=== PATIENT | female | born 1950 | race Caucasian/White ===

== ENCOUNTER → 2017-06-22 13:05 | Outpatient (CLI) | payer MEDICARE, OTHER, SELFPAY ==
[2017-06-19 13:25] VITALS: BP 106/67; BMI 26.4
--- NOTE | 2017-06-22 13:11 | HPBI_ITS ---
MAMMOGRAPHY - UNILATERAL DIAGNOSTIC: LEFT BREAST REASON FOR EXAM: Female, 66 years old. Abnormal screening mammogram. PERTINENT HISTORY: Non-contributory. TECHNIQUE: Compression spot views of the left breast as well as 3-D views of the left breast were obtained. CAD: Full Field Digital Mammography with Computer Added Detection was performed. COMPARISON: Comparison is made with prior outside examination dated June 12, 2017. FINDINGS: Breast Composition: There are scattered areas of fibroglandular density. There are no dominant masses or suspicious calcifications. No other significant abnormalities are identified. BI/DIAG MAMM W/CAD, UNILAT IMPRESSION: No suspicious abnormality is seen. Correlation with ultrasound is recommended. ASSESSMENT CATEGORY: BIRADS Category 0: Incomplete. Need additional imaging evaluation. A letter regarding these results will be sent to the patient by the facility within 30 days. Approximately 10% of breast cancers are not detected by mammography. A normal mammogram should not delay biopsy of a clinically suspicious abnormality. Electronically Signed: Zafar Momin MD at 8:24 EST Tel [phone], Service support ,
--- NOTE | 2017-06-22 14:07 | US_ITS ---
STUDY: ULTRASOUND BREAST - LEFT REASON FOR EXAM: Female, 66 years old. Abnormal screening mammogram demonstrating a focal area of architectural distortion. TECHNIQUE: Axial and longitudinal images of the LEFT breast were performed with a high resolution ultrasound transducer. COMPARISON: Comparison is made with prior mammogram done earlier in the day as well as prior outside mammogram dated June 12, 2017. FINDINGS: LEFT Breast: The upper inner quadrant was examined by ultrasound. There is homogeneous fibroglandular tissue. No sonographic abnormality is seen. US/Breast Limited Unilateral IMPRESSION: No cystic sonographic abnormality is seen. ASSESSMENT CATEGORY: BIRADS Category 2: Benign. A letter regarding these results will be sent to the patient by the facility within 30 days. Electronically Signed: Zafar Momin MD at 15:04 EST Tel [phone], Service support ,
== END ==
PROVIDERS: Family Provider Preventive Medicine Occupational Medicine; PCP Preventive Medicine Occupational Medicine; Visit Provider Surgery
DX: R92.8 Other abnormal and inconclusive findings on diagnostic imaging of breast (principal)
CPT/HCPCS: 76642; 77061; 77065; G0279

== ENCOUNTER → 2017-06-29 07:54 | Outpatient (CLI) | payer MEDICARE, BC, OTHER, SELFPAY ==
[2017-06-19 13:25] VITALS: BP 106/67; BMI 26.4
--- NOTE | 2017-06-29 | BRBX_PTH ---
PATIENT: MONDAY RAND RALPH LOC: [facility] U#:[id number] AGE/SX: 74/F ROOM: RE06/29/[address]: Dr. Irish Fox MD : 1950 BED: DIS: SPEC #: [id number] RECD: 06/29/17 10:09 STATUS: COREY ALLEGRA #: [id number] PETERSON: 06/29/17 00:[address]: Irish Fox DEPT: SURGICAL PATHOLOGY RECD BY: Hardy Adams ENTERED: 06/29/17 10:18 SP TYPE: BREAST BX OTHR DR: Dr. Kevin Doherty DO Tissues: Left breast, NOS Procedures: Surgery Specimen Level IV HEADER OPERATION: Ultrasound-guided breast biopsy, left PRE-OP DIAGNOSIS: Left breast lesion 11 o?clock TISSUE SUBMITTED: Left breast lesion 11 o?clock ISCHEMIC TIME: 60 seconds MICROSCOPIC DIAGNOSIS Left breast, ultrasound-guided needle core biopsy: Fibrocystic change and focal elastosis. No evidence of malignancy. AM:estrella 06/30/17 MICROSCOPIC DESCRIPTION Slides are reviewed. GROSS DESCRIPTION Received in fixative is one container labeled with the patient's name and designated left breast. The specimen consists of multiple irregular fragments of pink, yellow and sutherland tissue that in aggregate measure 2 x 1 x 0.3 cm. The specimen is totally submitted in one cassette. / RY:estrella 06/29/17 TC:5 CPT: 09503
--- NOTE | 2017-06-29 07:56 | US_ITS ---
STUDY: ULTRASOUND BREAST - LEFT REASON FOR EXAM: Female, 66 years old. Breast Biopsy. TECHNIQUE: Axial and longitudinal images of the LEFT breast were performed with a high resolution ultrasound transducer. COMPARISON: Comparison is made with prior mammogram dated June 22, 2017. FINDINGS: LEFT Breast: There is an 8 mm x 9 mm x 8 mm ill-defined spiculated nodule at the 11:00 position breast at 3 cm from nipple. The surgeon performed 5 core biopsies. US/US Breast Biopsy 1st Lesion IMPRESSION: Successful ultrasound-guided core biopsy of the suspicious lesion at the 11:00 position in the breast at 3 cm from the nipple. ASSESSMENT CATEGORY: BIRADS Category 4: Suspicious - Biopsy Should Be Considered. A letter regarding these results will be sent to the patient by the facility within 30 days. Electronically Signed: Zafar Momin MD at 9:19 EST Tel [phone], Service support ,
--- NOTE | 2017-06-29 08:44 | HPBI_ITS ---
MAMMOGRAPHY - UNILATERAL DIAGNOSTIC: LEFT BREAST REASON FOR EXAM: Female, 66 years old. Assessment of clip placement following ultrasound-guided guided biopsy. PERTINENT HISTORY: TECHNIQUE: Digital unilateral breast amber (3D mammographic acquisition) in the CC and MLO projections. 2-D mediolateral oblique (MLO) and craniocaudad (CC) views of both breasts were obtained. CAD: Full Field Digital Mammography with Computer Added Detection was performed. COMPARISON: Comparison is made with prior outside examination dated June 12, 2017. FINDINGS: A tissue clip marker is seen in the central portion of the left breast corresponding to the focal area of architectural distortion. HPBI/DIAG MAMM W/CAD, UNILAT IMPRESSION: The tissue clip marker is seen within the focal area of architectural distortion. ASSESSMENT CATEGORY: BIRADS Category 2: Benign. A letter regarding these results will be sent to the patient by the facility within 30 days. Approximately 10% of breast cancers are not detected by mammography. A normal mammogram should not delay biopsy of a clinically suspicious abnormality. Electronically Signed: Zafar Momin MD at 10:19 EST Tel [phone], Service support ,
--- NOTE | 2017-06-29 08:56 | PCM.OP.BLANK ---
Operative Report Date of Procedure: 06/29/17 Procedure: ultrasound-guided core biopsy Indications: 66 year-old female with hypoechoic nodule with posterior shadowing at 11:00 in the left breast 2 centimeters from the nipple. Risk benefits were discussed the patient and she elected to proceed with ultrasound guided core biopsy with clip placement Description of procedure: Patient was brought into the ultrasound room in the left breast was marked. A timeout was completed verifying correct patient, procedure, site, specially, prior to beginning procedure. The left breast was prepped and draped in usual sterile fashion and using local anesthesia was obtained with 1% lidocaine with epi. The lesion was located with the ultrasound. Small incision was made with 11 blade to introduced the mammotome through the skin. Under ultrasound guidance multiple core samples were obtained using then 13-gauge mammotome and sent in formalin for pathology. The mammotome mammostar clip was then deployed into the biopsy cavity under ultrasound guidance and a picture was taken. Upon completion procedure hemostasis was obtained and a Steri-Strip and OpSite were placed. Patient was then taken to the mammography suite for clip verification. The clip was verified. The patient tolerated the procedure well and was discharged from the breast imaging department good condition. complications: none
== END ==
PROVIDERS: Family Provider Preventive Medicine Occupational Medicine; PCP Preventive Medicine Occupational Medicine; Visit Provider Surgery
DX: N64.89 Other specified disorders of breast (principal); N63.21 Unspecified lump in the left breast, upper outer quadrant
CPT/HCPCS: 19083; 77065; 88305

== ENCOUNTER 2020-07-16 16:36 | Outpatient (RCR) | payer MEDICARE, BC, OTHER, SELFPAY ==
[2017-06-19 13:25] VITALS: BMI 26.4
[2020-07-16] MEDS: COVID-19 VACC, MRNA(PFIZER)/PF 30 MCG/0.3 ML SYRINGE IM (15:33)
[2020-08-06] MEDS: COVID-19 VACC, MRNA(PFIZER)/PF 30 MCG/0.3 ML SYRINGE IM (14:34)
== END 2020-10-20 23:59 ==
LOC: IMMUN 16:36
PROVIDERS: PCP Preventive Medicine Occupational Medicine; Visit Provider Family Medicine
DX: Z23 Encounter for immunization (principal)
CPT/HCPCS: 0001A; 0002A; 91300

== ENCOUNTER 2020-12-13 20:28 | Emergency (ER) | payer MEDICARE, OTHER, BC, SELFPAY ==
[2017-06-19 13:25] VITALS: BMI 26.4
[2020-12-13 20:29] VITALS: BP 136/67; PULSE 62; RESP 16; TEMP 36.1; O2SAT 100; BMI 27.2
--- NOTE | 2020-12-13 20:50 | RAD_ITS ---
STUDY: X-RAY - RIGHT SHOULDER REASON FOR EXAM: Female, 70 years old. Fall TECHNIQUE: 2 view(s) of the shoulder. COMPARISON: None. FINDINGS: Normal glenohumeral articulation. There are degenerative changes of the acromioclavicular joint. There is a indeterminate cortical defect within the acromium. There is a comminuted fracture of the surgical neck and head of the humerus. The soft tissue structures are unremarkable. Normal visualized pulmonary apex. RAD/Shoulder min 2 Views IMPRESSION: Proximal humeral fracture. Indeterminate cortical defect within the acromium, cannot exclude underlying fracture. Electronically Signed: Selma Li MD at 21:10 EDT Tel , Service support ,
--- NOTE | 2020-12-13 21:25 | RAD_ITS ---
STUDY: X-RAY - RIGHT FOOT CLINICAL: Female, 70 years old. injury TECHNIQUE: 3 view(s) of the foot. COMPARISON: None. FINDINGS: No visualized acute fracture. Normal talus, calcaneus, and tarsal bones. A small plantar calcaneal spur is present. Mild cortical spurring is present at the base of the fifth metatarsal bone. Normal visualized subtalar, talonavicular, calcaneocuboid, tarsal and tarsometatarsal articulations. Normal metatarsophalangeal joint of the great toe. Normal tibial and fibular sesamoid bones. Normal interphalangeal joint of the great toe. Normal phalanges of the great toe. Normal second through fifth metatarsophalangeal joints. Normal interphalangeal joints and phalanges of the lesser toes. The soft tissue structures are unremarkable. RAD/Foot min 3 Views IMPRESSION: No acute process Electronically Signed: Surinder Rosas MD at 22:22 EDT , Service support ,
[2020-12-13] MEDS: oxyCODONE 5 MG Tablet PO (21:55)
--- NOTE | 2020-12-13 22:33 | EX.ED.UPPERE ---
HPI History of Present Illness Chief Complaint: Upper Extremity Injury Informant: patient Onset/Context/Timing Onset: Today Current Severity: Moderate Maximum Severity: Moderate Narrative Narrative: Patient presents with right shoulder and right foot pain after a fall. Patient was walking her dogs when she got pulled and fell to the ground landing on her right shoulder. She denies striking her head or loss of consciousness. She is not on anticoagulants. [facility] Medical History Abnormal mammogram GERD (gastroesophageal reflux disease) Home Medications carbidopa 25 mg-levodopa 100 mg tablet 1 tab PO .daily tab 06/19/17 [History Last Taken Unknown] splbtycvilwg-xfsozhxb-krivdu tablet 1 tab PO QDAY 06/19/17 [History Last Taken Unknown] omega-3 fatty acids 500 mg capsule 1,000 mg PO QDAY 06/19/17 [History Last Taken Unknown] simvastatin 20 mg tablet 20 mg PO QPM 06/19/17 [History Last Taken Unknown] tramadol 50 mg tablet 50 mg PO Q6H 06/19/17 [History Last Taken Unknown] vit A 1,000 unit-C 200 mg-E 60 unit-lutein 2 mg and minerals tablet 1 tab PO QDAY 06/19/17 [History Last Taken Unknown] apple cider vinegar 300 mg PO DAILY 12/13/20 [History Last Taken Unknown] oxycodone-acetaminophen [Percocet] 1 tab PO Q6H PRN 4 Days #14 tab 12/13/20 [Rx Last Taken Unknown] Allergy/AdvReac Type Severity Reaction Status Date / Time codeine Allergy Intermediate hives Verified 12/13/20 20:29 meperidine [From Demerol] Allergy Intermediate hives Verified 12/13/20 20:29 Family History Father Hypertension High cholesterol Surgical History History of cholecystectomy History of hysterectomy History of left knee surgery Social History Smoking Status: Never smoker alcohol intake: never substance use type: does not use ROS ROS ED Constitutional Constitutional ED: Denies chills or fever(s) Eyes Eyes: Denies change in vision ENT ENT ED: Denies sore throat Cardiovascular Cardiovascular: Denies chest pain Respiratory/Chest Respiratory/Chest: Denies cough or dyspnea Gastrointestinal Gastrointestinal: Denies abdominal pain, diarrhea, nausea or vomiting Genitourinary Genitourinary ED: Denies dysuria Musculoskeletal Musculoskeletal: Reports other Details: Right shoulder and right foot pain ; Denies back pain Integumentary Denies rash Neurologic Neurologic: Denies headache(s) or weakness Psychiatric Psychiatric: Denies anxiety or depression Endocrine Endocrinology: Denies polydipsia or polyuria Allergic/Immunologic Allergic/Immunologic ED: Denies urticaria EXAM Physical Exam Const Vital Signs: 12/13/20 20:29 Temperature 96.9 F L Temperature Source Temporal Pulse Rate 62 Respiratory Rate 16 Blood Pressure 136/67 H Blood Pressure Mean 90 Pulse Ox 100 Oxygen Delivery Method Room Air Positive well nourished and well developed General Appearance ED: well developed HEENT normocephalic and atraumatic Eyes PERRL and EOMs intact bilaterally Neck supple Neck Narrative: No C-spine tenderness. Chest Wall inspection of chest normal and palpation of chest normal Resp normal respiratory effort and clear to auscultation bilaterally Cardio regular rate and regular rhythm GI non-tender Palpation: soft Extremity Extremity Narrative: Tenderness palpation right proximal humerus. No tenderness at the elbow, forearm, or wrist. Strong distal pulses. Can wiggle fingers. Right lower extremity reveals tenderness over the right midfoot. Good cap refill distally. Neuro oriented x3 Sensorium / Orientation: alert Psych mental status grossly normal Skin Lesions: no lesions Rashes: no rashes MDM MDM MDM Narrative Medical decision making narrative: Right shoulder x-rays were ordered per nursing protocol. Right foot x-rays were ordered by myself. Patient is given oxycodone for pain. Radiography Diagnostic Testing: Radiology Impression Shoulder X-Ray 12/13/20 20:50 IMPRESSION: Proximal humeral fracture. Indeterminate cortical defect within the acromium, cannot exclude underlying fracture. Electronically Signed: Selma Li MD at 21:10 EDT Tel , Service support , Foot X-Ray 12/13/20 21:25 IMPRESSION: No acute process Electronically Signed: Surinder Rosas MD at 22:22 EDT , Service support , Treatment and Re-Evaluation Comments:: Per my review no obvious foot fracture. There is evidence of right proximal humerus fracture. Radiologist interpretation is reviewed. Patient is placed in a sling and swath. Right foot is wrapped in Magen wrap. She will follow-up with Dr. Ramirez whom she has seen in the past. Discharge Plan Triage Chief Complaint: Upper Extremity Injury ED Provider: Aliya Osullivan Dx/Rx/DC Orders Clinical Impression: Fracture, humerus Instructions: Understanding a Humerus Fracture Prescriptions: New oxycodone-acetaminophen [Percocet] 5-325 mg tablet 1 tab PO Q6H PRN (Reason: pain) 4 Days Qty: 14 RF: 0 No Action tramadol 50 mg tablet 50 mg PO Q6H RF: 0 simvastatin 20 mg tablet 20 mg PO QPM RF: 0 omega-3 fatty acids 500 mg capsule 1,000 mg PO QDAY RF: 0 tecxaggfmgxr-ymqgoigc-vzbqim tablet 1 tab PO QDAY RF: 0 vit A,C and I-xhefxw-lhqjqdbu [[facility] Plus Lutein] 1,000 unit-200 mg-60 unit-2 mg tablet 1 tab PO QDAY RF: 0 carbidopa-levodopa 25-100 mg tablet 1 tab PO .daily RF: 0 apple cider vinegar 300 mg Tablet 300 mg PO DAILY RF: 0 Primary Care Provider: Kevin Doherty Referrals: Dl Carrillo DO [STAFF PHYSICIAN] - 1 Week Kevin Doherty DO [Primary Care Provider] - Disposition Disposition: Home, Self Care Discharge Date/Time: 12/13/20 23:43
[2020-12-13 23:42] VITALS: BP 132/77; PULSE 69; RESP 15; O2SAT 98
== END 2020-12-13 23:43 | disposition home or self-care (01) ==
PROVIDERS: Emergency Provider Emergency Medicine; PCP Preventive Medicine Occupational Medicine
DX: S42.214A Unspecified nondisplaced fracture of surgical neck of right humerus, initial encounter for closed fracture (principal); S42.294A Other nondisplaced fracture of upper end of right humerus, initial encounter for closed fracture; W18.30XA Fall on same level, unspecified, initial encounter; Y93.K1 Activity, walking an animal; Y92.89 Other specified places as the place of occurrence of the external cause; Y99.8 Other external cause status; K21.9 Gastro-esophageal reflux disease without esophagitis
CPT/HCPCS: 73030; 73630; 99285